=== PATIENT | female | born 2000 | race Caucasian/White ===

== ENCOUNTER 2025-02-03 06:21 | Day surgery (SDC) | payer BC ==
[2025-02-03] MEDS ORDERED: ceFAZolin 3 GM in Water For Injection, Sterile 30 ML IVPUSH ONE (07:00)
[2025-02-03] MEDS: Lactated Ringers 1,000 ML IV SCH (07:00)
[2025-02-03] MEDS: Scopalamine 1mg/3day Transdermal Patch TOP ONE (07:05)
[2025-02-03] MEDS ORDERED: fentaNYL 100 MCG/2 ML SDV ONE ×2 (07:20→08:26)
[2025-02-03] MEDS ORDERED: Ropivacaine 0.5% 5 MG/ML 30 ML SDV ONE (07:20)
[2025-02-03] MEDS ORDERED: propofoL 500 MG/50 ML 50 ML ONE ×3 (07:20→08:37)
[2025-02-03] MEDS ORDERED: dexmedeTOMIDine HCl 200 MCG/2 ML SDV ONE (07:23)
[2025-02-03] MEDS: Scopalamine 1mg/3day Transdermal Patch ONE (07:31)
[2025-02-03] MEDS ORDERED: Morphine 10 MG/ML SDV ONE (07:49)
[2025-02-03] MEDS ORDERED: Lidocaine 2% 11 ML Jelly Filled Syringe ONE (07:50)
[2025-02-03] MEDS ORDERED: Albuterol 0.083% 2.5 MG/3 ML Neb Soln NEB PRN (08:01)
[2025-02-03] MEDS ORDERED: Ondansetron 4 MG/2 ML SDV IVPUSH PRN (08:01)
[2025-02-03] MEDS ORDERED: fentaNYL 50 MCG/ML SDV IVPUSH PRN (08:01)
[2025-02-03] MEDS ORDERED: Naloxone 0.4 MG/ML SDV IVPUSH PRN ×2 (08:01→09:33)
[2025-02-03] MEDS ORDERED: ceFAZolin 3 GM Vial ONE (08:02)
[2025-02-03] MEDS ORDERED: Indocyanine Green 25 MG SDV ONE (08:02)
[2025-02-03] MEDS ORDERED: Ketamine HCL/NACL, ISO-OSM 50 MG/5 ML Syringe ONE (08:25)
[2025-02-03] MEDS ORDERED: Ondansetron 4 MG/2 ML SDV ONE (08:54)
[2025-02-03] MEDS ORDERED: Ketorolac 30 MG/ML SDV ONE (08:54)
[2025-02-03] MEDS ORDERED: Dexamethasone 4 MG/ML 5 ML MDV ONE (08:54)
[2025-02-03] MEDS ORDERED: Acetaminophen/HYDROcodone 325-5 MG Tab PO PRN ×2 (09:33→09:55)
[2025-02-03] MEDS ORDERED: Lactated Ringers 1,000 ML IV SCH (09:45)
== END 2025-02-03 11:20 | disposition home or self-care (01) ==
LOC: MW.SDS 06:21
PROVIDERS: ATTEND Surgery
DX: K80.10 Calculus of gallbladder with chronic cholecystitis without obstruction (principal); E03.9 Hypothyroidism, unspecified; E66.813 Obesity, class 3; Z91.09 Other allergy status, other than to drugs and biological substances; Z68.42 Body mass index [BMI] 45.0-49.9, adult; Z79.899 Other long term (current) drug therapy; Z79.890 Hormone replacement therapy
CPT/HCPCS: 47562; 64488; 81025; A9270; J0665; J0690; J1100; J1308; J1885; J2272; J2405; J2704; J2795; J3010; J3535; J7120; 00790; J3490